=== PATIENT | female | born 2005 | race Hispanic/Latino ===

== ENCOUNTER 2024-03-29 00:31 | Observation (INO) | payer MEDICAID ==
[2024-03-29] MEDS ORDERED: hydrALAZINE 20 MG/ML VIAL SLOW IVP PRN (00:35)
[2024-03-29] MEDS: metroNIDAZOLE 500 MG TAB PO SCH ×2 (02:26→13:12)
[2024-03-29 07:38] VITALS: BMI 23.8
[2024-03-29 10:08] LABS: #Basophils 0.03 10x3/uL (0.0-0.2); #Eosinphils 0.23 10x3/uL (0.0-0.5); #Monocytes 0.64 10x3/uL (0.0-1.1); #Neutrophils 5.62 10x3/uL (1.5-8.4); %Basophils 0.3 % (0.0-2.0); %Eosinophils 2.5 % (0.0-6.0); %Lymphocytes 27.9 % (18.0-47.0); %Neutrophils 61.6 % (40.0-75.0); Hematocrit 28.6 % (34.9-44.5); Hemoglobin 9.7 g/dL (12.0-15.5); Mean Corpuscular HGB CONC 33.9 g/dL (32.0-36.0); Mean Corpuscular Hemoglobin 31.3 pg (27.0-33.0); Mean Corpuscular Volume 92.3 fL (81.6-98.3); Mean Platelet Volume 8.7 fL (7.4-10.4); Platelet Count 290 10x3/uL (150-450); RBC Distribution Width 13.2 % (11.5-14.5); White Blood Cell (WBC) Count 9.1 10x3/uL (3.5-10.5)
[2024-03-29 10:30] LABS: ALT (SGPT) 16 U/L (8-55); AST (SGOT) 15 U/L (5-30); Albumin 2.9 g/dL (3.5-5.0); Alkaline Phosphatase 49 U/L (40-100); Anion Gap 16 mmol/L (10-20); BUN (Urea Nitrogen) 7 mg/dL (8.4-21.0); Bilirubin, Total 0.2 mg/dL (0.2-1.2); Calc. Creatinine Clearance 156 mL/min (70-130); Calcium 8.6 mg/dL (7.8-10.44); Carbon Dioxide 20 mmol/L (22-29); Chloride 106 mmol/L (98-107); Estimated GFR 135; Glucose 77 mg/dL (70-105); Potassium 3.8 mmol/L (3.5-5.1); Protein, Total 5.9 g/dL (6.0-8.3); Sodium 138 mmol/L (136-145)
[2024-03-29 11:34] LABS: PTT 27.9 sec (22.0-33.0); Prothrombin Time 10.9 sec (9.5-12.1)
[2024-03-29] MEDS: Azithromycin 250 MG TAB PO SCH (13:26)
[2024-03-29 16:24] VITALS: BP 104/60; TEMP 98.1
[2024-03-30] MEDS ORDERED: Ferrous Sulfate 325 MG TAB PO SCH (08:00)
== END 2024-03-29 18:30 | disposition home or self-care (01) ==
LOC: CSHLD/OP 00:31 → CSHANTE 02:10 → CSHPED 03:14
PROVIDERS: ADMIT Student in an Organized Health Care Education/Training Program; ATTEND Student in an Organized Health Care Education/Training Program
DX: O46.92 Antepartum hemorrhage, unspecified, second trimester (principal); Z3A.22 22 weeks gestation of pregnancy; O34.32 Maternal care for cervical incompetence, second trimester
CPT/HCPCS: 36415; 76816; 80053; 82728; 85025; 85384; 85610; 85730; 86140; 99285; G0378

== ENCOUNTER 2024-04-01 19:14 | Day surgery (SDC) | payer MEDICAID | END 2024-04-02 01:30 | disposition short-term general hospital (02) | LOC: CSHLD/OP 19:14 | PROVIDERS: ATTEND Family Medicine | DX: O34.32 Maternal care for cervical incompetence, second trimester (principal); Z79.82 Long term (current) use of aspirin; Z79.899 Other long term (current) drug therapy; Z98.890 Other specified postprocedural states; Z90.49 Acquired absence of other specified parts of digestive tract; Z3A.22 22 weeks gestation of pregnancy | CPT/HCPCS: 99283 ==